=== PATIENT | female | born 1950 | race Caucasian/White ===

== ENCOUNTER 2018-07-31 08:10 | Emergency (ER) | payer SELFPAY ==
[~2018-07-31] VITALS: Ht 162.6 cm; Wt 84.4 kg
[2018-07-31 08:24] VITALS: Ht 162.6 cm; Wt 84.4 kg
[2018-07-31 09:14] LABS: BASOPHIL % 1.1 % (0-2); PLATELET COUNT 287 x10^3mcL (130-400)
[2018-07-31 09:44] LABS: CALCIUM 9.3 mg/dL (8.5-10.1); CARBON DIOXIDE 30.2 mmol/L (21-32); CHLORIDE SERUM 105 mmol/L (98-107); CREATININE SERUM 0.8 mg/dL (0.6-1.0); GFR1 > 60 mL/min; GLUCOSE SERUM 102 mg/dL (74-106); POTASSIUM SERUM 3.6 mmol/L (3.5-5.1); SODIUM SERUM 143 mmol/L (136-145)
[2018-07-31 09:48] LABS: ALBUMIN 3.6 g/dL (3.4-5.0); ALKALINE PHOSPHATASE 124 U/L (46-116); ALT/SGPT 28 U/L (14-59); AST/SGOT 16 U/L (15-37); BILIRUBIN TOTAL 0.7 mg/dL (0.20-1.00); C REACTIVE PROTEIN 0.8 mg/dL (<=0.9); TOTAL PROTEIN, SERUM 8.1 g/dL (6.4-8.2)
[2018-07-31 10:10] VITALS: BP 145/75
== END 2018-07-31 10:10 | disposition home or self-care (01) ==
LOC: ED 08:10
PROVIDERS: Emergency Medicine
DX: L50.9 Urticaria, unspecified (principal)
CPT/HCPCS: J1200; J2930; J3490

== ENCOUNTER 2018-08-06 18:17 | Emergency (ER) | payer SELFPAY ==
[~2018-08-06] VITALS: Ht 165.1 cm; Wt 84.5 kg
[2018-08-06 18:33] VITALS: Ht 165.1 cm; Wt 84.5 kg
[2018-08-06 20:41] VITALS: BP 117/73
== END 2018-08-06 20:41 | disposition home or self-care (01) ==
LOC: ED 18:17
DX: H00.035 Abscess of left lower eyelid (principal); H00.031 Abscess of right upper eyelid; L30.9 Dermatitis, unspecified
CPT/HCPCS: J0696; J1100